=== PATIENT | male | born 1985 | race Two or more races ===

== ENCOUNTER 2016-11-01 12:43 | Day surgery (SDC) | payer OTHER ==
[~2016-11-01 12:43] MED LIST: Buffered Lidocaine 1% SYRIN* 3 ML/SYR SYRINGE INTRADERM ONE; Famotidine IV* 10 MG/ML 2 ML (20 mg) IV ONE; Morphine INJ* 2 MG/ML 1 ML SYRINGE IV PRN; PROCHLORPERAZINE INJ 5 MG/ML 2 ML VIAL IV PRN; fentaNYL* 50 MCG/ML 2 ML VIAL (100 MCG VIAL) IV PRN; oxyCODONE/Acetamin 5/325 MG* TAB PO PRN
[2016-11-01] MEDS ORDERED: Famotidine IV* 10 MG/ML 2 ML (20 mg) ONE (13:02)
[2016-11-01] MEDS ORDERED: fentaNYL* 50 MCG/ML 2 ML VIAL (100 MCG VIAL) ONE ×2 (13:31→15:06)
[2016-11-01] MEDS ORDERED: Atracurium* 10 MG/ML 10 ML VIAL ONE (13:32)
[2016-11-01] MEDS ORDERED: Midazolam* 1 MG/ML 5 ML VIAL (5 MG) ONE (13:32)
[2016-11-01] MEDS ORDERED: KETAMINE HCL* 50 MG/ML 10 ML VIAL ONE (13:32)
[2016-11-01] MEDS ORDERED: Onabotulinimtoxina 100 UNITS* VIAL ONE (14:00)
[2016-11-01] MEDS ORDERED: Bupivacaine 0.5% W/EPI SDV* 30 ML VIAL ONE (14:21)
[2016-11-01] MEDS ORDERED: Lidocaine 1% INJ* 10 MG/ML 30 ML SDV ONE (14:21)
[2016-11-01] MEDS ORDERED: Lidocaine 2% JELLY* 6 ML JELLY TOPICAL ONE (14:21)
[2016-11-01] MEDS ORDERED: Dexamethasone IV* 4 MG/ML 1 ML (4 MG) ONE (15:04)
[2016-11-01] MEDS ORDERED: Glycopyrrolate IV* 0.2 MG/ML 1 ML VIAL ONE ×2 (15:04→15:10)
[2016-11-01] MEDS ORDERED: Neostigmine Methylsulfate* 2 MG/2 ML SYRINGE ONE ×2 (15:04→15:21)
[2016-11-01] MEDS ORDERED: Propofol* 10 MG/ML 20 ML BTL IV PUSH ONE (15:04)
[2016-11-01] MEDS ORDERED: Ondansetron INJ* 2 MG/ML VIAL ONE (15:04)
[2016-11-01] MEDS ORDERED: Ketorolac INJ* 30 MG/ML 1 ML VIAL ONE (15:04)
--- NOTE | 2016-11-01 15:20 | SURGPN ---
Brief Operative Note - Surgery Procedures: OPERATIVE REPORT PRE-OP: Anal fissure POST-OP: Posterior superficial anal fissure PROCEDURE:Anorectal exam under anesthesia with injection of 100 unit of Botox A into the internal anal sphincter. SURGEON: MD Nathalie ANESTHESIA: General with local with Dr. Chan ASST: none IVF: min EBL: min SPECIMEN: none DRAIN: none WOUND CLASS: 4 COMPLICATIONS: none TO PACU
[2016-11-01 16:43] VITALS: BP 112/64
--- NOTE | 2016-11-02 16:14 | OP ---
OPERATIVE REPORT: DATE OF OPERATION: 11/01/16 - [facility] DATE OF : 89 SURGEON: Dagoberto Zelaya MD ANESTHESIOLOGIST: Dr. Chan. ANESTHESIA: General with local anesthetic. PRE-OP DIAGNOSIS: Posterior anal fissure. POST-OP DIAGNOSIS: Posterior anal fissure, superficial. OPERATIVE PROCEDURE: Anorectal exam under anesthesia with injection of 100 units of Botox into the internal sphincter in the posterior orientation. ESTIMATED BLOOD LOSS: Minimal. SPECIMENS: None. COMPLICATIONS: None. DRAINS: None. WOUND CLASSIFICATION: Not applicable. FINDINGS: The patient had a superficial posterior anal fissure. I appreciated no evidence of abscess, fistulas, or other anal canal abnormalities. He had some very small internal hemorrhoids, which would not appear to be the source of his symptoms, and the distal rectal mucosa appeared to be unremarkable. DESCRIPTION OF PROCEDURE: Written and informed consent was obtained, and the patient was taken to the operating room and general anesthesia was administered. He was placed in the prone beata-knife position. The buttocks and perineum were prepped and draped in the usual sterile fashion. Time-out verification was completed. Sequential compression devices were placed on the lower extremities. 0.5% Marcaine was then used to perform a perianal block in the usual fashion. Digital rectal exam with a lubricated finger showed no evidence of mass or blood. Gentle spreading of the buttock cheek showed a superficial posterior midline anal fissure without exposed anal sphincter. I appreciated no external anal verge opening to suggest fistula. There was no abscess noted. The anal canal mucosa appears to be normal. He had very few small normal size internal hemorrhoids and the distal rectal mucosa appeared to be unremarkable. There were no internal openings along the anal canal. With this finding, I palpated the intersphincteric groove, identified the internal sphincter and injected approximately 50 units of Botox in each side lateral to the posterior midline into the internal anal sphincter without difficulty. Once this had been completed, a gauze was placed between the buttock cheeks. The patient tolerated the procedure well, was taken to the recovery room in stable condition. CC: [facility]; [facility]* [id number]/CPS #: [id number] MTDD
== END 2016-11-01 17:02 | disposition home or self-care (01) ==
LOC: OR 12:43
PROVIDERS: ATTEND Surgery
DX: K60.2 Anal fissure, unspecified (principal); Z87.891 Personal history of nicotine dependence
CPT/HCPCS: J0585; J1100; J1885; J2001; J2250; J2405; J2704; J3010

== ENCOUNTER 2017-01-15 07:12 | Emergency (ER) | payer OTHER ==
[2017-01-15 07:26] VITALS: BP 115/69
--- NOTE | 2017-01-15 08:15 | UC ---
Skin Complaint HPI - HPI Summary HPI Summary: 31 yo male with rash on wrists and left left line as well as face (+++) pruritis onset 1 day after laying on grass under tree - History of Current Complaint Chief Complaint: UCRash Time Seen by Provider: 01/15/17 07:52 Stated Complaint: RASH ON HAND Hx Obtained From: Patient Onset/Duration: Gradual Onset, Lasting Days Timing: Constant Onset Severity: Mild Current Severity: Mild Pain Intensity: 0 Pain Scale Used: 0-10 Numeric Location: Other - see RUBENS Character: Pruritus, Redness, Raised Aggravating: Nothing Alleviating: Nothing Associated Signs & Symptoms: Positive: Rash - Allergy/Home Medications Allergies/Adverse Reactions: Allergies Allergy/AdvReac Type Severity Reaction Status Date / Time No Known Allergies Allergy Verified 01/15/17 07:27 Home Medications: Home Medications Magnesium Hydroxide LIQ* [Milk of Magnesia LIQ*] 30 ml PO BID PRN 01/15/17 [ History Confirmed 01/15/17] Polyethylene Glycol 3350* [Miralax*] 17 gm PO DAILY 01/15/17 [History Confirmed 01/15/17] Review of Systems Constitutional: Negative Skin: Rash Eyes: Negative ENT: Negative Respiratory: Negative Cardiovascular: Negative Gastrointestinal: Negative Genitourinary: Negative Motor: Negative Neurovascular: Negative Musculoskeletal: Negative Neurological: Negative Psychological: Negative All Other Systems Reviewed And Are Negative: Yes PMH/Surg Hx/FS Hx/Imm Hx Previously Healthy: Yes - Surgical History Surgical History: Yes Surgery Procedure, Year, and Place: right leg surgery as a teenager. anal fissue - Family History Known Family History: Positive: Hypertension - Social History Alcohol Use: None Substance Use Type: None Smoking Status (MU): Former Smoker When Did the Patient Quit Smoking/Using Tobacco: 07/2015 Physical Exam Triage Information Reviewed: Yes Appearance: Well-Appearing, No Pain Distress, Well-Nourished Vital Signs: Initial Vital Signs Temp 97.9 F 01/15/17 07:22 Pulse 84 01/15/17 07:22 Resp 16 01/15/17 07:22 BP 115/69 01/15/17 07:22 Pulse Ox 99 01/15/17 07:22 Vital Signs Reviewed: Yes Eyes: Positive: Conjunctiva Clear ENT: Positive: Hearing grossly normal. Negative: Nasal congestion, Nasal drainage, Trismus, Muffled/hoarse voice Neck: Positive: Supple, Nontender, No Lymphadenopathy Respiratory: Positive: Lungs clear, Normal breath sounds, No respiratory distress Cardiovascular: Positive: RRR Musculoskeletal: Positive: ROM Intact, No Edema Neurological: Positive: Alert Skin: Positive: rashes Course/Dx - Diagnoses Provider Diagnoses: contact dermatitis Discharge - Discharge Plan Condition: Stable Disposition: HOME Prescriptions: Triamcinolone 0.5% CREAM(NF) [Triamcinolone 0.5% CREAM*] 1 applic TOPICAL QID PRN #60 tube PRN Reason: Itching Patient Education Materials: Contact Dermatitis (ED) Referrals: Durga Rogers MD [Primary Care Provider] - If Needed Additional Instructions: if things worsen you may need oral steroids Images Head: 1 - red raised Hands: 1 - red raised 2 - red /raised Front/Back of Body, Lg ([place]): 1 - red raised
== END 2017-01-15 08:12 | disposition home or self-care (01) ==
LOC: UCEAST 07:12
DX: K00.7 Teething syndrome (principal)
CPT/HCPCS: 99212; G0463